=== PATIENT | male | born 1995 | race American Indian/Alaskan Native ===

== ENCOUNTER 2017-08-20 14:08 | Emergency (ER) | payer MEDICAID, OTHER ==
[2017-08-20 14:17] VITALS: TEMP 98.4; O2SAT 98
--- NOTE | 2017-08-20 14:30 | ED PDOC ---
Arrival/HPI - General Historian: Patient - History of Present Illness Time/Duration: Other (year) Symptom Onset: Gradual Symptom Course: Unchanged Quality: Other - General Chief Complaint: Eye Problem Time Seen by Provider: 08/20/17 14:12 - History of Present Illness Narrative History of Present Illness (Text): 08/20/17 14:27 Patient is a 22 yo M with no significant PMH presents to ED with enlarging lump to left upper eye lid for the past year. Patient has not been evaluated due to lack of insurance. Patient states that he has tried using warm compresses and OTC drops, but neither have helped. Patient denies any pain, discharge, blurred vision, conjunctival injection, fever, chills, MARTINEZ, or dizziness. No PMD. (Maximus Kenyon) Past Medical History - Provider Review Nursing Documentation Reviewed: Yes - Psychiatric Hx Substance Use: No Family/Social History - Physician Review Nursing Documentation Reviewed: Yes Family/Social History: No Known Family HX Smoking Status: Never Smoked Hx Alcohol Use: No Hx Substance Use: No Allergies/Home Meds Allergies/Adverse Reactions: Allergies No Known Allergies Allergy (Verified 08/20/17 14:14) Review of Systems - Review of Systems Constitutional: Normal Eyes: Other (lump left upper eye lid) ENT: Normal Respiratory: Normal Cardiovascular: Normal Gastrointestinal: Normal Genitourinary Male: Normal Musculoskeletal: Normal Skin: Normal Neurological: Normal Endocrine: Normal Hemo/Lymphatic: Normal Psychiatric: Normal Physical Exam Vital Signs Reviewed: Yes Temperature: Afebrile Blood Pressure: Normal Pulse: Regular Respiratory Rate: Normal Appearance: Positive for: Non-Toxic Pain Distress: None Mental Status: Positive for: Alert and Oriented X 3 - Systems Exam Head: Present: Atraumatic, Normocephalic, Other (left, medial upper eye lid ~ 0.5 cm mass, fixed, non-fluctant, non-erythematous) Pupils: Present: PERRL Extroacular Muscles: Present: EOMI Conjunctiva: Present: Normal Mouth: Present: Moist Mucous Membranes Neck: Present: Normal Range of Motion Respiratory/Chest: Present: Clear to Auscultation, Good Air Exchange. No: Respiratory Distress, Accessory Muscle Use Cardiovascular: Present: Regular Rate and Rhythm, Normal S1, S2. No: Murmurs Abdomen: No: Tenderness, Distention, Peritoneal Signs Back: Present: Normal Inspection Upper Extremity: Present: Normal Inspection. No: Cyanosis, Edema Lower Extremity: Present: Normal Inspection. No: Edema Neurological: Present: GCS=15, CN II-XII Intact, Speech Normal Skin: Present: Warm, Dry, Normal Color. No: Rashes Psychiatric: Present: Alert, Oriented x 3, Normal Insight, Normal Concentration Vital Signs Temp Pulse Resp BP Pulse Ox 08/20/17 15:22 60 16 117/67 98 08/20/17 14:16 98.4 F 62 17 134/76 98 Medical Decision Making ED Course and Treatment: 08/20/17 14:33 22 yo M presents to ED with left upper eye lid mass. Plan: - Visual acuity - Reassess and disposition 08/20/17 15:24 Visual acuity 20/30. Discussed with patient that mass is likely a chalazion. Patient advised to continue warm compresses and follow up with an automatic gluing machine operator. Patient medically stable for discharge. (Maximus Kenyon) 08/20/17 18:19 seen the [facility] resident. left eye "mass" x 1 yr suspect chalazion vs cyst. visual acuity ok. stable for outpt management (Raghavendra Dowling) Disposition/Present on Arrival - Present on Arrival Any Indicators Present on Arrival: No History of DVT/PE: No History of Uncontrolled Diabetes: No Urinary Catheter: No History of Decub. Ulcer: No History Surgical Site Infection Following: None - Disposition Have Diagnosis and Disposition been Completed?: Yes Disposition Time: 15:25 Patient Plan: Discharge - Disposition Diagnosis: Chalazion left upper eyelid Disposition: HOME/ ROUTINE Condition: STABLE Discharge Instructions (ExitCare): Chalazion, Blocked Tear Duct (DC) Additional Instructions: 1. Apply warm compresses to left eye for 15 minutes 4 times a day 2. Recommend follow up with automatic gluing machine operator 3. If symptoms worsen, return to Emergency department BRIANA MORRIS, thank you for letting us take care of you today. Your provider was Raghavendra Dowling DO and you were treated for PAIN ON (L) EYE. The emergency medical care you received today was directed at your acute symptoms. If you were prescribed any medication, please fill it and take as directed. It may take several days for your symptoms to resolve. Return to the Emergency Department if your symptoms worsen, do not improve, or if you have any other problems. Please contact your doctor or call one of the physicians/clinics you have been referred to that are listed on the Patient Visit Information form that is included in your discharge packet. Bring any paperwork you were given at discharge with you along with any medications you are taking to your follow up visit. Our treatment cannot replace ongoing medical care by a primary care provider outside of the emergency department. Thank you for allowing the [facility] team to be part of your care today. Referrals: Chava Rojas [Staff Provider] - Follow up with primary Forms: [employer] (Turkish)
[2017-08-20 15:28] VITALS: BP 117/67; PULSE 60; RESP 16
== END 2017-08-20 15:22 | disposition home or self-care (01) ==
LOC: ED 14:08
DX: H00.14 Chalazion left upper eyelid (principal)